=== PATIENT | female | born 1930 | race African-American/Black ===

== ENCOUNTER → 2017-08-28 | Outpatient (CLI) | payer MEDICARE, BC ==
[~2017-08-28] MED LIST: CHOL100044 PO; CINSULIN PO; KDUR20 PO; LISI-604 PO; METO-385 PO; NAPR220T66 PO; NIFE60TA64 PO; OMEG1CAP94 PO; ROSU5TAB PO; VALS320T2 PO
== END | disposition home or self-care (01) ==
LOC: MAMMO 10:38
PROVIDERS: ATTEND Specialist
DX: Z12.31 Encounter for screening mammogram for malignant neoplasm of breast (principal)
CPT/HCPCS: 77067

== ENCOUNTER 2017-10-20 12:31 | Emergency (ER) | payer MEDICARE, BC ==
[~2017-10-20] VITALS: Ht 162.6 cm; Wt 80.0 kg
[2017-10-20] MEDS ORDERED: CLONIDINE 0.2MG TABLET PO ONE (13:45)
[2017-10-20] MEDS ORDERED: ENALAPRIL 2.5MG/2ML VIAL 2ML IV ONE (14:30)
[2017-10-20] MEDS ORDERED: CLONIDINE 0.1MG TABLET PO SCH (14:30)
[2017-10-20 16:01] VITALS: BP 179/81
== END 2017-10-20 16:09 | disposition home or self-care (01) ==
LOC: ER 13:31
DX: I16.0 Hypertensive urgency (principal)
CPT/HCPCS: 93005; 96374; 99284; J3490

== ENCOUNTER 2018-08-22 05:49 | Inpatient (IN) | payer MEDICARE, BC ==
[~2018-08-22] VITALS: Ht 160 cm; Wt 94.3 kg
[~2018-08-22 05:49] MED LIST changes: +APIX5TAB PO; -CHOL100044 PO; -CINSULIN PO; +IBAN150T16 PO; -KDUR20 PO; +METF-416 PO; -NAPR220T66 PO; -NIFE60TA64 PO; +OLME40TA11 PO; -OMEG1CAP94 PO; -ROSU5TAB PO; -VALS320T2 PO
[2018-08-22] MEDS ORDERED: ONDANSETRON HCL 4MG/2ML INJ IV STA (06:15)
[2018-08-22] MEDS ORDERED: SODIUM CHLORIDE 0.9% 1,000 ML IV ONE ×2 (06:15→07:30)
[2018-08-22 06:34] LABS: HEMATOCRIT. 36.5 % (36.0-48.0); HEMOGLOBIN. 12.4 g/dL (12.0-16.0); MEAN CORPUSCULAR HEMOGLOBIN 28.9 pg (28.0-32.0); MEAN PLATELET VOLUME 9.5 fl (7.4-10.4); PLATELET 188 x1000/uL (130-400); RED CELL DISTRIBUTION WIDTH 16.1 % (11.6-14.6)
[2018-08-22 06:37] LABS: CHLORIDE 89 mEq/L (98-107)
[2018-08-22 07:58] LABS: PLATELET ESTIMATE NORMAL
[2018-08-22 08:05] LABS: CLARITY URINE CLEAR (CLEAR); COLOR URINE YELLOW (YELLOW); KETONES URINE 1+ (NEGATIVE); LEUKOCYTE ESTERASE URINE NEGATIVE (NEGATIVE); NITRITE URINE NEGATIVE (NEGATIVE); OCCULT BLOOD URINE NEGATIVE (NEGATIVE); PROTEIN URINE NEGATIVE (NEGATIVE); SPECIFIC GRAVITY URINE 1.014 (1.005-1.030); UROBILINOGEN URINE 0.2 E.U./dL (0.2-1.0)
[2018-08-22 13:00] VITALS: BP 123/61
[2018-08-22] MEDS ORDERED: ACETAMINOPHEN 325MG TABLET PO PRN (15:00)
[2018-08-22] MEDS ORDERED: ONDANSETRON HCL 4MG/2ML INJ IV PRN (15:00)
[2018-08-22] MEDS ORDERED: DEXTROSE 50% WATER 50ML SYRINGE IV PRN (15:00)
[2018-08-22 16:00] VITALS: BP 144/76
[2018-08-22] MEDS: BLOOD SUGAR DIAGNOSTIC STRIP TEST SCH ×2 (17:28→21:01)
[2018-08-22] MEDS: METFORMIN HCL 500MG TABLET PO SCH (17:34)
[2018-08-22] MEDS: APIXABAN 5 MG TABLET PO SCH (17:34)
[2018-08-22] MEDS: INSULIN LISPRO 100 UNITS/ML SUBCUT SCH ×2 (17:38→21:02)
[2018-08-22 20:00] VITALS: BP 133/60
[2018-08-22] MEDS: METOPROLOL TARTRATE 50MG TABLET PO SCH (21:01)
[2018-08-23] VITALS: BP 122/66
[2018-08-23] MEDS: ZOLPIDEM TARTRATE 5MG TABLET PO PRN ×2 (01:35→22:29)
[2018-08-23 04:00] VITALS: BP 136/70
[2018-08-23] MEDS: BLOOD SUGAR DIAGNOSTIC STRIP TEST SCH ×4 (06:34→21:41)
[2018-08-23 08:00] VITALS: BP 150/94
[2018-08-23] MEDS ORDERED: METOPROLOL TARTRATE 25MG TABLET PO SCH (09:00)
[2018-08-23] MEDS ORDERED: MEDICATION NOT ON FORMULARY EA (Olmesartan Medoxomil (Benicar) 40 MG) PO SCH (09:00)
[2018-08-23 09:02] LABS: BASOPHILS % 0.2 % (0.0-2.0); EOSINOPHILS % 0.2 % (0.0-5.0); HEMATOCRIT. 35.7 % (36.0-48.0); HEMOGLOBIN. 12.1 g/dL (12.0-16.0); LYMPHOCYTES % 8.5 % (20.0-50.0); MEAN CORPUSCULAR VOLUME 85.5 fL (81.0-99.0); MEAN PLATELET VOLUME 10.2 fl (7.4-10.4); MONOCYTES % 12.2 % (2.0-8.0); NEUTROPHILS % 78.9 % (40.0-76.0); PLATELET 191 x1000/uL (130-400); RED BLOOD CELL COUNT 4.18 mill/uL (4.2-5.4); RED CELL DISTRIBUTION WIDTH 16.3 % (11.6-14.6)
[2018-08-23 09:13] LABS: BASOPHILS % 0.2 % (0.0-2.0); EOSINOPHILS % 0.2 % (0.0-5.0); HEMATOCRIT. 37.6 % (36.0-48.0); HEMOGLOBIN. 12.5 g/dL (12.0-16.0); MEAN CORPUSCULAR HEMOGLOBIN 28.8 pg (28.0-32.0); MEAN CORPUSCULAR VOLUME 86.5 fL (81.0-99.0); MEAN PLATELET VOLUME 10.1 fl (7.4-10.4); MONOCYTES % 10.8 % (2.0-8.0); NEUTROPHILS % 79.8 % (40.0-76.0); PLATELET 203 x1000/uL (130-400); RED BLOOD CELL COUNT 4.35 mill/uL (4.2-5.4); RED CELL DISTRIBUTION WIDTH 16.5 % (11.6-14.6)
[2018-08-23] MEDS: LOSARTAN POTASSIUM 100 MG TABLET PO SCH (09:19)
[2018-08-23] MEDS: METOPROLOL TARTRATE 50MG TABLET PO SCH ×2 (09:19→21:40)
[2018-08-23] MEDS: METFORMIN HCL 500MG TABLET PO SCH ×2 (09:19→17:48)
[2018-08-23] MEDS: APIXABAN 5 MG TABLET PO SCH ×2 (09:19→17:48)
[2018-08-23] MEDS: INSULIN LISPRO 100 UNITS/ML SUBCUT SCH ×4 (09:20→21:00)
[2018-08-23 09:22] LABS: CHLORIDE 96 mEq/L (98-107)
[2018-08-23 09:23] LABS: CHLORIDE 96 mEq/L (98-107)
[2018-08-23 12:00] VITALS: BP 193/63
[2018-08-23] MEDS ORDERED: NIFE60TA64 PO (14:15)
[2018-08-23] MEDS ORDERED: IBAN150T16 PO (14:15)
[2018-08-23] MEDS ORDERED: APIX5TAB PO (14:15)
[2018-08-23] MEDS ORDERED: ROSU20TA2 PO (14:15)
[2018-08-23] MEDS ORDERED: OLME40TA11 PO (14:15)
[2018-08-23] MEDS ORDERED: METO-385 PO (14:15)
[2018-08-23] MEDS ORDERED: METF-416 PO (14:15)
[2018-08-23] MEDS ORDERED: POTA20TA82 PO (14:21)
[2018-08-23 16:00] VITALS: BP 149/54
[2018-08-23 20:00] VITALS: BP 178/94
[2018-08-23] MEDS: AMLODIPINE 5MG TABLET PO SCH (21:40)
[2018-08-24] VITALS: BP 115/54
[2018-08-24 04:00] VITALS: BP 136/77
[2018-08-24] MEDS: BLOOD SUGAR DIAGNOSTIC STRIP TEST SCH ×4 (06:32→20:19)
[2018-08-24] MEDS: INSULIN LISPRO 100 UNITS/ML SUBCUT SCH ×4 (07:50→20:37)
[2018-08-24 08:40] VITALS: BP 133/71
[2018-08-24] MEDS: METOPROLOL TARTRATE 50MG TABLET PO SCH ×2 (08:46→20:33)
[2018-08-24] MEDS: METFORMIN HCL 500MG TABLET PO SCH ×2 (08:46→17:18)
[2018-08-24] MEDS: LOSARTAN POTASSIUM 100 MG TABLET PO SCH (08:46)
[2018-08-24] MEDS: AMLODIPINE 5MG TABLET PO SCH ×2 (08:46→20:33)
[2018-08-24] MEDS: APIXABAN 5 MG TABLET PO SCH ×2 (08:47→17:18)
[2018-08-24 12:00] VITALS: BP 117/68
[2018-08-24 12:42] LABS: HEMATOCRIT 36.4 % (36.0-48.0); HEMOGLOBIN 12.1 g/dL (12.0-16.0); MEAN CORPUSCULAR HEMOGLOBIN 28.7 pg (28.0-32.0); MEAN CORPUSCULAR VOLUME 86.6 fL (81.0-99.0); PLATELET 210 x1000/uL (130-400); RED CELL DISTRIBUTION WIDTH 16.3 % (11.6-14.6)
[2018-08-24 12:51] LABS: CHLORIDE 101 mEq/L (98-107)
[2018-08-24 16:55] VITALS: BP_SYST 114
[2018-08-24 20:00] VITALS: BP 143/75
[2018-08-24] MEDS: ZOLPIDEM TARTRATE 5MG TABLET PO PRN (21:58)
[2018-08-25] VITALS: BP 120/53
[2018-08-25 04:00] VITALS: BP 121/71
[2018-08-25] MEDS: BLOOD SUGAR DIAGNOSTIC STRIP TEST SCH ×4 (06:15→21:06)
[2018-08-25] MEDS: INSULIN LISPRO 100 UNITS/ML SUBCUT SCH ×4 (07:42→21:24)
[2018-08-25 08:00] VITALS: BP 151/74
[2018-08-25] MEDS: METOPROLOL TARTRATE 50MG TABLET PO SCH ×2 (08:24→21:21)
[2018-08-25] MEDS: APIXABAN 5 MG TABLET PO SCH ×2 (08:25→17:26)
[2018-08-25] MEDS: AMLODIPINE 5MG TABLET PO SCH ×2 (08:25→21:22)
[2018-08-25] MEDS: METFORMIN HCL 500MG TABLET PO SCH ×2 (08:25→17:26)
[2018-08-25] MEDS: LOSARTAN POTASSIUM 100 MG TABLET PO SCH (08:25)
[2018-08-25 12:00] VITALS: BP 110/77
[2018-08-25 12:09] LABS: HEMATOCRIT 35.1 % (36.0-48.0); HEMOGLOBIN 11.9 g/dL (12.0-16.0); MEAN CORPUSCULAR HEMOGLOBIN 29.2 pg (28.0-32.0); MEAN CORPUSCULAR VOLUME 86.4 fL (81.0-99.0); PLATELET 215 x1000/uL (130-400); RED BLOOD CELL COUNT 4.06 mill/uL (4.2-5.4); RED CELL DISTRIBUTION WIDTH 16.5 % (11.6-14.6)
[2018-08-25 12:17] LABS: CHLORIDE 103 mEq/L (98-107)
[2018-08-25 16:00] VITALS: BP 151/84
[2018-08-25 18:10] LABS: CLARITY URINE CLEAR (CLEAR); COLOR URINE YELLOW (YELLOW); KETONES URINE NEGATIVE (NEGATIVE); LEUKOCYTE ESTERASE URINE 1+ (NEGATIVE); NITRITE URINE POSITIVE (NEGATIVE); OCCULT BLOOD URINE 3+ (NEGATIVE); PH URINE 5.5 (4.5-8.0); PROTEIN URINE NEGATIVE (NEGATIVE); UROBILINOGEN URINE 0.2 E.U./dL (0.2-1.0)
[2018-08-25 20:00] VITALS: BP_SYST 146; BP_SYST 158; BP_DIAS 74; BP_DIAS 82
[2018-08-25] MEDS: ZOLPIDEM TARTRATE 5MG TABLET PO PRN (22:08)
[2018-08-26] VITALS (8 sets, daily range): BP systolic 130–163; BP diastolic 52–90
[2018-08-26] MEDS: BLOOD SUGAR DIAGNOSTIC STRIP TEST SCH ×4 (06:26→20:59)
[2018-08-26 06:52] LABS: HEMATOCRIT. 34.7 % (36.0-48.0); HEMOGLOBIN. 11.9 g/dL (12.0-16.0); MEAN CORPUSCULAR HEMOGLOBIN 29.5 pg (28.0-32.0); MEAN CORPUSCULAR VOLUME 85.7 fL (81.0-99.0); MEAN PLATELET VOLUME 9.6 fl (7.4-10.4); PLATELET 209 x1000/uL (130-400); RED BLOOD CELL COUNT 4.05 mill/uL (4.2-5.4); RED CELL DISTRIBUTION WIDTH 16.5 % (11.6-14.6)
[2018-08-26 08:28] LABS: CHLORIDE 103 mEq/L (98-107)
[2018-08-26 08:37] LABS: CREATINE KINASE 52 IU/L (26-192)
[2018-08-26 08:38] LABS: T4 FREE 0.93 ng/dL (0.76-1.46)
[2018-08-26] MEDS: METFORMIN HCL 500MG TABLET PO SCH ×2 (08:39→18:34)
[2018-08-26] MEDS: LOSARTAN POTASSIUM 100 MG TABLET PO SCH (08:39)
[2018-08-26] MEDS: AMLODIPINE 5MG TABLET PO SCH (08:41)
[2018-08-26] MEDS: APIXABAN 5 MG TABLET PO SCH ×2 (08:45→18:35)
[2018-08-26] MEDS: METOPROLOL TARTRATE 50MG TABLET PO SCH ×2 (08:46→21:01)
[2018-08-26] MEDS: INSULIN LISPRO 100 UNITS/ML SUBCUT SCH ×4 (08:49→20:58)
[2018-08-26 15:52] LABS: PLATELET ESTIMATE NORMAL
[2018-08-26] MEDS: NIFEDIPINE XL 60MG TAB PO SCH (16:08)
[2018-08-27] VITALS: BP 156/66
[2018-08-27] MEDS: ZOLPIDEM TARTRATE 5MG TABLET PO PRN (00:51)
[2018-08-27 04:00] VITALS: BP 112/57
[2018-08-27] MEDS: BLOOD SUGAR DIAGNOSTIC STRIP TEST SCH ×3 (07:06→16:45)
[2018-08-27 08:00] VITALS: BP 133/73
[2018-08-27 08:54] LABS: HEMATOCRIT. 35.1 % (36.0-48.0); HEMOGLOBIN. 11.7 g/dL (12.0-16.0); MEAN CORPUSCULAR HEMOGLOBIN 28.8 pg (28.0-32.0); MEAN CORPUSCULAR VOLUME 86.7 fL (81.0-99.0); MEAN PLATELET VOLUME 8.9 fl (7.4-10.4); PLATELET 209 x1000/uL (130-400); RED BLOOD CELL COUNT 4.05 mill/uL (4.2-5.4); RED CELL DISTRIBUTION WIDTH 16.5 % (11.6-14.6)
[2018-08-27 09:26] LABS: CHLORIDE 104 mEq/L (98-107)
[2018-08-27] MEDS: APIXABAN 5 MG TABLET PO SCH ×2 (09:27→18:08)
[2018-08-27] MEDS: METOPROLOL TARTRATE 50MG TABLET PO SCH (09:28)
[2018-08-27] MEDS: METFORMIN HCL 500MG TABLET PO SCH ×2 (09:28→18:08)
[2018-08-27] MEDS: LOSARTAN POTASSIUM 100 MG TABLET PO SCH (09:28)
[2018-08-27] MEDS: INSULIN LISPRO 100 UNITS/ML SUBCUT SCH ×3 (09:29→17:15)
[2018-08-27 12:00] VITALS: BP 128/65
[2018-08-27] MEDS: NIFEDIPINE XL 60MG TAB PO SCH (13:46)
[2018-08-27 16:00] VITALS: BP 132/77
[2018-08-27 16:07] LABS: PLATELET ESTIMATE NORMAL
[2018-08-27] MEDS ORDERED: MAGNESIUM 2 G PREMIX 50 ML IV NR (18:00)
[2018-08-27 18:34] VITALS: BP 132/77
== END 2018-08-27 20:03 | DRG 641 ==
LOC: ER 05:49 → 6WST 09:00 → EDBEDREQ 09:02 → EDBEDREQTM 09:02 → ENRESERV 11:53 → 6WST 13:10 → 5WST 08-27 15:16
PROVIDERS: ADMIT Family Medicine Adult Medicine; ATTEND Family Medicine Adult Medicine
PROC: 4B02XSZ Measurement of Cardiac Pacemaker, External Approach (ICD-10-PCS; principal; 2018-08-26)
DX: E87.1 Hypo-osmolality and hyponatremia (principal); N39.0 Urinary tract infection, site not specified; I11.0 Hypertensive heart disease with heart failure; D72.829 Elevated white blood cell count, unspecified; E11.9 Type 2 diabetes mellitus without complications; I48.2 Chronic atrial fibrillation; Z96.652 Presence of left artificial knee joint; D64.9 Anemia, unspecified; E66.9 Obesity, unspecified; E78.5 Hyperlipidemia, unspecified; E83.42 Hypomagnesemia; I27.20 Pulmonary hypertension, unspecified; I50.9 Heart failure, unspecified; M17.0 Bilateral primary osteoarthritis of knee; Z79.84 Long term (current) use of oral hypoglycemic drugs; Z79.01 Long term (current) use of anticoagulants; Z95.0 Presence of cardiac pacemaker; Z90.710 Acquired absence of both cervix and uterus; Z79.899 Other long term (current) drug therapy; Z82.49 Family history of ischemic heart disease and other diseases of the circulatory system; Z83.3 Family history of diabetes mellitus; Z68.36 Body mass index [BMI] 36.0-36.9, adult
CPT/HCPCS: 36415; 71045; 80048; 82550; 82962; 83735; 84439; 85027; 93005; 93970; 96374; 97116; 97162; 97166; 97530; 97535; 99285; A6261; J1815; J2405; J3475; J7030; J7050; A4315

== ENCOUNTER 2019-03-15 15:43 | Inpatient (IN) | payer MEDICARE, BC ==
[~2019-03-15] VITALS: Ht 165.1 cm; Wt 85.3 kg
[~2019-03-15 15:43] MED LIST changes: +CHOL200074 MT; -LISI-604 PO; +LOSA100T32 MT; +MAGN400T39 MT; +NIFE-32 PO; +POTA20TA82 PO; +ROSU20TA2 PO
[2019-03-15 16:16] LABS: BG BASE EXCESS -5.7 mmol/L (-2.0-2.0); BG BILEVEL POS AIRWAY PRESSURE 15/5; BG CARBOXYHEMOGLOBIN 0.3 % (0.5-1.5); BG DEOXYHEMOGLOBIN 0.9 % (0.0-5.0); BG FRACTION INSPIRED OXYGEN 45; BG HCO3 ACT 18.7 mmol/L (22.0-26.0); BG METHEMOGLOBIN 0.2 % (0.0-1.5); BG OXYGEN SATURATION 99.1 % (92.0-98.5); BG OXYHEMOGLOBIN 98.6 % (94.0-97.0); BG PCO2 33.3 mmHg (35.0-45.0); BG PH 7.368 (7.350-7.450); BG PO2 174.1 mmHg (75.0-100.0); BG SAMPLE SITE RIGHT RADIAL; BG TOTAL HEMOGLOBIN 11.8 g/dL (12.0-18.0); BG VENT MODE MASK - BIPAP; BG VENT RATE 16 set
[2019-03-15 16:34] LABS: BASOPHILS % 0.2 % (0.0-2.0); EOSINOPHILS % 0.1 % (0.0-5.0); HEMATOCRIT. 35.6 % (36.0-48.0); HEMOGLOBIN. 11.7 g/dL (12.0-16.0); LYMPHOCYTES % 13.3 % (20.0-50.0); MEAN CORPUSCULAR HEMOGLOBIN 27.3 pg (28.0-32.0); MEAN CORPUSCULAR VOLUME 83.2 fL (81.0-99.0); MEAN PLATELET VOLUME 9.4 fl (7.4-10.4); MONOCYTES % 12.4 % (2.0-8.0); PLATELET 206 x1000/uL (130-400); RED BLOOD CELL COUNT 4.27 mill/uL (4.2-5.4); RED CELL DISTRIBUTION WIDTH 17.9 % (11.6-14.6)
[2019-03-15 16:39] LABS: CHLORIDE 97 mEq/L (98-107)
[2019-03-15] MEDS ORDERED: ALBUTEROL (0.083%) 2.5MG/3ML NEB HHN STA (17:02)
[2019-03-15] MEDS ORDERED: METHYLPREDNISOLONE SOD SUCC 125 MG/2 ML VIAL IV STA (17:02)
[2019-03-15] MEDS ORDERED: IPRATROPIUM BROMIDE (0.02%) 0.5MG/2.5ML NEB HHN STA (17:02)
[2019-03-15] MEDS ORDERED: ASPIRIN 81MG TABLET PO ONE (17:15)
[2019-03-16] MEDS: IPRATROPIUM/ALBUTEROL 0.5-3(2.5)MG/3ML NEB HHN PRN (00:42)
[2019-03-16 03:00] VITALS: BP 130/70
[2019-03-16] MEDS ORDERED: CLONIDINE 0.1MG TABLET PO PRN (04:00)
[2019-03-16] MEDS ORDERED: ACETAMINOPHEN 325MG TABLET PO PRN (04:00)
[2019-03-16] MEDS ORDERED: DEXTROSE 50% WATER 50ML SYRINGE IV PRN (04:00)
[2019-03-16] MEDS: METHYLPREDNISOLONE SOD SUCC 40 MG/ML VIAL IV SCH ×3 (05:38→21:00)
[2019-03-16] MEDS: BLOOD SUGAR DIAGNOSTIC STRIP TEST SCH ×4 (07:01→21:11)
[2019-03-16 08:00] VITALS: BP 140/86
[2019-03-16] MEDS: INSULIN LISPRO 100 UNITS/ML SUBCUT SCH ×4 (08:45→21:11)
[2019-03-16 10:50] LABS: BASOPHILS % 0.1 % (0.0-2.0); HEMATOCRIT. 33.1 % (36.0-48.0); HEMOGLOBIN. 11.1 g/dL (12.0-16.0); LYMPHOCYTES % 7.5 % (20.0-50.0); MEAN CORPUSCULAR HEMOGLOBIN 27.6 pg (28.0-32.0); MEAN CORPUSCULAR VOLUME 82.1 fL (81.0-99.0); MEAN PLATELET VOLUME 9.2 fl (7.4-10.4); MONOCYTES % 3.2 % (2.0-8.0); NEUTROPHILS % 89.2 % (40.0-76.0); PLATELET 182 x1000/uL (130-400); RED BLOOD CELL COUNT 4.03 mill/uL (4.2-5.4); RED CELL DISTRIBUTION WIDTH 17.2 % (11.6-14.6)
[2019-03-16 10:56] LABS: CHLORIDE 106 mEq/L (98-107)
[2019-03-16 12:00] VITALS: BP 149/75
[2019-03-16] MEDS: IPRATROPIUM/ALBUTEROL 0.5-3(2.5)MG/3ML NEB HHN SCH ×3 (13:41→20:03)
[2019-03-16] MEDS: DOXYCYCLINE 100 MG in DEXT 5% WATER 100 ML IV SCH (14:11)
[2019-03-16 16:00] VITALS: BP 113/62
[2019-03-16] MEDS ORDERED: FUROSEMIDE 40MG/4ML VIAL IVP NR (17:00)
[2019-03-16] MEDS: MONTELUKAST SODIUM 10MG TABLET PO SCH (18:05)
[2019-03-16] MEDS: DILTIAZEM HCL 60MG TABLET PO SCH (18:05)
[2019-03-16 18:48] LABS: CLARITY URINE CLEAR (CLEAR); COLOR URINE YELLOW (YELLOW); KETONES URINE NEGATIVE (NEGATIVE); LEUKOCYTE ESTERASE URINE NEGATIVE (NEGATIVE); NITRITE URINE NEGATIVE (NEGATIVE); OCCULT BLOOD URINE NEGATIVE (NEGATIVE); PROTEIN URINE NEGATIVE (NEGATIVE); SPECIFIC GRAVITY URINE 1.015 (1.005-1.030); UROBILINOGEN URINE 0.2 E.U./dL (0.2-1.0)
[2019-03-16 20:09] VITALS: BP 107/56
[2019-03-16] MEDS: FLUTICASONE PROPIONATE 50MCG/SPRAY BOTTLE BOTHNSTRLS SCH (21:00)
[2019-03-16] MEDS: OSELTAMIVIR 75MG CAPSULE PO SCH (21:00)
[2019-03-17] VITALS: BP 112/65
[2019-03-17] MEDS: DOXYCYCLINE 100 MG in DEXT 5% WATER 100 ML IV SCH ×2 (00:45→12:18)
[2019-03-17] MEDS: DILTIAZEM HCL 60MG TABLET PO SCH ×4 (00:46→18:28)
[2019-03-17] MEDS: IPRATROPIUM/ALBUTEROL 0.5-3(2.5)MG/3ML NEB HHN SCH ×6 (01:05→19:38)
[2019-03-17 04:00] VITALS: BP 105/65
[2019-03-17] MEDS: METHYLPREDNISOLONE SOD SUCC 40 MG/ML VIAL IV SCH (05:06)
[2019-03-17] MEDS: BLOOD SUGAR DIAGNOSTIC STRIP TEST SCH ×4 (07:20→21:36)
[2019-03-17 07:48] LABS: HEMATOCRIT. 31.5 % (36.0-48.0); HEMOGLOBIN. 10.6 g/dL (12.0-16.0); MEAN CORPUSCULAR HEMOGLOBIN 27.9 pg (28.0-32.0); MEAN CORPUSCULAR VOLUME 82.8 fL (81.0-99.0); MEAN PLATELET VOLUME 9.6 fl (7.4-10.4); PLATELET 174 x1000/uL (130-400); RED BLOOD CELL COUNT 3.81 mill/uL (4.2-5.4); RED CELL DISTRIBUTION WIDTH 17.4 % (11.6-14.6)
[2019-03-17 08:00] VITALS: BP 130/81
[2019-03-17] MEDS: FLUTICASONE PROPIONATE 50MCG/SPRAY BOTTLE BOTHNSTRLS SCH ×2 (08:31→21:04)
[2019-03-17] MEDS: INSULIN LISPRO 100 UNITS/ML SUBCUT SCH ×4 (08:32→21:36)
[2019-03-17 08:41] LABS: CHLORIDE 105 mEq/L (98-107)
[2019-03-17] MEDS: OSELTAMIVIR 75MG CAPSULE PO SCH ×2 (10:46→21:04)
[2019-03-17] MEDS: APIXABAN 5 MG TABLET PO SCH ×2 (10:46→18:28)
[2019-03-17 12:00] VITALS: BP 151/84
[2019-03-17 13:01] LABS: PLATELET ESTIMATE NORMAL
[2019-03-17 16:00] VITALS: BP 139/73
[2019-03-17] MEDS: MONTELUKAST SODIUM 10MG TABLET PO SCH (18:28)
[2019-03-17] MEDS: PREDNISONE 20MG TABLET PO SCH (18:28)
[2019-03-17 20:00] VITALS: BP 140/80
[2019-03-18] VITALS: BP 119/86
[2019-03-18] MEDS: IPRATROPIUM/ALBUTEROL 0.5-3(2.5)MG/3ML NEB HHN SCH ×8 (00:20→22:40)
[2019-03-18] MEDS: DOXYCYCLINE 100 MG in DEXT 5% WATER 100 ML IV SCH ×2 (00:30→12:27)
[2019-03-18] MEDS: DILTIAZEM HCL 60MG TABLET PO SCH ×5 (01:01→23:16)
[2019-03-18 04:00] VITALS: BP 151/86
[2019-03-18] MEDS: BLOOD SUGAR DIAGNOSTIC STRIP TEST SCH ×4 (06:39→21:07)
[2019-03-18 07:58] VITALS: BP 120/92
[2019-03-18 08:14] LABS: HEMATOCRIT. 33.4 % (36.0-48.0); HEMOGLOBIN. 11.3 g/dL (12.0-16.0); MEAN CORPUSCULAR HEMOGLOBIN 28.1 pg (28.0-32.0); MEAN CORPUSCULAR VOLUME 82.9 fL (81.0-99.0); MEAN PLATELET VOLUME 9.4 fl (7.4-10.4); PLATELET 203 x1000/uL (130-400); RED BLOOD CELL COUNT 4.03 mill/uL (4.2-5.4)
[2019-03-18] MEDS: APIXABAN 5 MG TABLET PO SCH ×2 (08:22→17:03)
[2019-03-18] MEDS: OSELTAMIVIR 75MG CAPSULE PO SCH ×3 (08:22→21:18)
[2019-03-18] MEDS: PREDNISONE 20MG TABLET PO SCH (08:22)
[2019-03-18] MEDS: INSULIN LISPRO 100 UNITS/ML SUBCUT SCH ×4 (08:24→21:00)
[2019-03-18] MEDS: FLUTICASONE PROPIONATE 50MCG/SPRAY BOTTLE BOTHNSTRLS SCH ×3 (08:25→21:18)
[2019-03-18 08:38] LABS: CHLORIDE 106 mEq/L (98-107)
[2019-03-18 12:30] VITALS: BP 152/76
[2019-03-18 13:36] LABS: PLATELET ESTIMATE NORMAL
[2019-03-18] MEDS: INSULIN GLARGINE UD 100 UNITS/ML SYR SUBCUT SCH (14:13)
[2019-03-18 16:00] VITALS: BP 151/73
[2019-03-18] MEDS: MONTELUKAST SODIUM 10MG TABLET PO SCH (17:03)
[2019-03-18 20:00] VITALS: BP 151/84
[2019-03-19] VITALS: BP 160/84
[2019-03-19] MEDS: DOXYCYCLINE 100 MG in DEXT 5% WATER 100 ML IV SCH ×2 (01:00→12:30)
[2019-03-19] MEDS: IPRATROPIUM/ALBUTEROL 0.5-3(2.5)MG/3ML NEB HHN SCH ×3 (01:53→20:07)
[2019-03-19 04:00] VITALS: BP 171/90
[2019-03-19] MEDS: BLOOD SUGAR DIAGNOSTIC STRIP TEST SCH ×3 (05:59→17:18)
[2019-03-19] MEDS: OSELTAMIVIR 75MG CAPSULE PO SCH (06:08)
[2019-03-19 06:11] LABS: BASOPHILS % 0.1 % (0.0-2.0); HEMATOCRIT. 36.4 % (36.0-48.0); HEMOGLOBIN. 12.2 g/dL (12.0-16.0); LYMPHOCYTES % 7.2 % (20.0-50.0); MEAN CORPUSCULAR HEMOGLOBIN 27.6 pg (28.0-32.0); MEAN CORPUSCULAR VOLUME 82.5 fL (81.0-99.0); MEAN PLATELET VOLUME 9.1 fl (7.4-10.4); MONOCYTES % 13.4 % (2.0-8.0); NEUTROPHILS % 79.3 % (40.0-76.0); PLATELET 223 x1000/uL (130-400); RED BLOOD CELL COUNT 4.41 mill/uL (4.2-5.4); RED CELL DISTRIBUTION WIDTH 17.5 % (11.6-14.6)
[2019-03-19] MEDS: DILTIAZEM HCL 60MG TABLET PO SCH ×3 (06:13→17:30)
[2019-03-19 06:54] LABS: CHLORIDE 108 mEq/L (98-107)
[2019-03-19] MEDS: INSULIN LISPRO 100 UNITS/ML SUBCUT SCH ×3 (07:50→17:30)
[2019-03-19] MEDS ORDERED: PREDNISONE 20MG TABLET PO SCH (09:00)
[2019-03-19 10:18] VITALS: BP 149/84
[2019-03-19] MEDS: APIXABAN 5 MG TABLET PO SCH ×2 (10:19→17:29)
[2019-03-19] MEDS: FLUTICASONE PROPIONATE 50MCG/SPRAY BOTTLE BOTHNSTRLS SCH (10:19)
[2019-03-19] MEDS: INSULIN GLARGINE UD 100 UNITS/ML SYR SUBCUT SCH (10:26)
[2019-03-19] MEDS ORDERED: ROSU5TAB MT (16:25)
[2019-03-19] MEDS: MONTELUKAST SODIUM 10MG TABLET PO SCH (17:29)
[2019-03-19 17:46] VITALS: BP 149/87
[2019-03-19 20:00] VITALS: BP 157/74
== END 2019-03-19 20:10 | DRG 871 ==
LOC: ER 15:43 → 6WST 18:05 → EDBEDREQ 18:08 → ENRESERV 03-16 00:47
PROVIDERS: ADMIT Family Medicine Adult Medicine; ATTEND Family Medicine Adult Medicine
PROC: 5A09357 Assistance with Respiratory Ventilation, Less than 24 Consecutive Hours, Continuous Positive Airway Pressure (ICD-10-PCS; principal; 2019-03-15)
DX: A41.89 Other specified sepsis (principal); J96.00 Acute respiratory failure, unspecified whether with hypoxia or hypercapnia; J09.X1 Influenza due to identified novel influenza A virus with pneumonia; I31.3 Pericardial effusion (noninflammatory); E87.2 Acidosis; J44.1 Chronic obstructive pulmonary disease with (acute) exacerbation; N39.0 Urinary tract infection, site not specified; E78.5 Hyperlipidemia, unspecified; E11.65 Type 2 diabetes mellitus with hyperglycemia; E87.70 Fluid overload, unspecified; I10 Essential (primary) hypertension; I49.5 Sick sinus syndrome; J20.9 Acute bronchitis, unspecified; I48.91 Unspecified atrial fibrillation; D64.9 Anemia, unspecified; I11.9 Hypertensive heart disease without heart failure; Z96.652 Presence of left artificial knee joint; D69.6 Thrombocytopenia, unspecified; G90.8 Other disorders of autonomic nervous system; T38.0X5A Adverse effect of glucocorticoids and synthetic analogues, initial encounter; Z79.01 Long term (current) use of anticoagulants; Z83.3 Family history of diabetes mellitus; Z82.49 Family history of ischemic heart disease and other diseases of the circulatory system; Z90.710 Acquired absence of both cervix and uterus; Z95.0 Presence of cardiac pacemaker; Z79.899 Other long term (current) drug therapy; Z87.81 Personal history of (healed) traumatic fracture; Y92.89 Other specified places as the place of occurrence of the external cause
CPT/HCPCS: 36415; 36600; 71045; 78582; 80048; 80053; 81003; 82375; 82805; 82962; 83036; 83735; 83880; 84484; 85025; 87804; 93005; 94640; 96374; 97162; 99285; A9558; J1815; J1940; J2920; J2930; J3490; J7060; J7512; J7611; J7620

== ENCOUNTER → 2020-06-22 | Outpatient (CLI) | payer MEDICARE, BC ==
[~2020-06-22] MED LIST changes: -OLME40TA11 PO; -POTA20TA82 PO; -ROSU20TA2 PO; +ROSU5TAB MT
== END | disposition home or self-care (01) ==
LOC: RAD 12:07
PROVIDERS: ATTEND Specialist
DX: R09.89 Other specified symptoms and signs involving the circulatory and respiratory systems (principal); I87.8 Other specified disorders of veins; I51.7 Cardiomegaly
CPT/HCPCS: 71046